=== PATIENT | male | born 1990 ===

== ENCOUNTER → 2021-09-04 | Outpatient (CLI) | payer OTHER ==
[2021-09-04 15:19] LABS: INR 1.1 (<1.2); Partial Thromboplastin Time 26.7 sec (22.0-30.0); Prothrombin Time 11.7 sec (9.0-12.0)
[2021-09-04 15:21] LABS: HCT 48.4 % (39.0-53.0); HGB 15.7 gm/dL (13.0-17.5); MCH 31.2 pg (25.0-35.0); MCHC 32.4 g/dL (31.0-37.0); MCV 96.3 fL (80.0-100.0); Mean Platelet Volume 12.8; RBC 5.02 m/uL (4.30-5.90); RDW 14.3 % (11.5-15.5); WBC 6.7 k/uL (3.8-10.6)
[2021-09-04 15:27] LABS: ALT 22 U/L (4-49); AST 27 U/L (17-59); African American GFR (CKD) >90 (>60 ml/min/1.73 sqM); Albumin 4.2 g/dL (3.5-5.0); Alkaline Phosphatase 81 U/L (38-126); Anion Gap 10 mmol/L; Blood Urea Nitrogen 13 mg/dL (9-20); Calcium 9.6 mg/dL (8.4-10.2); Carbon Dioxide 26 mmol/L (22-30); Chloride 101 mmol/L (98-107); Glucose 79 mg/dL (74-99); Magnesium 1.9 mg/dL (1.6-2.3); Non-African American GFR(CKD) >90 (>60 ml/min/1.73 sqM); Phosphorus 3.7 mg/dL (2.5-4.5); Potassium 4.2 mmol/L (3.5-5.1); Sodium 137 mmol/L (137-145); Total Bilirubin 1.3 mg/dL (0.2-1.3); Total Protein 7.3 g/dL (6.3-8.2)
[2021-09-04 15:56] LABS: Platelet Count 139 k/uL (150-450)
[2021-09-05 02:40] LABS: % Iron Saturation 42.86 (15.00-50.00); Chol/HDL Ratio 2.59 Ratio; Ferritin 85.6 ng/mL (22.0-322.0); Iron 141 ug/dL (65-175); LDL Cholesterol,Calculated 73.9 mg/dL (0.0-131.0); Prealbumin 17.3 mg/dL (18.0-42.0); Total Iron Binding Capacity 329 ug/dL (228-460)
--- NOTE | 2021-09-05 08:54 | CT ---
EXAMINATION TYPE: CT abdomen pelvis w con DATE OF EXAM: 09/04/2021 COMPARISON: None HISTORY: Ventral and left inguinal hernia. CT DLP: 1881.6 mGycm CONTRAST: CT scan of the abdomen and pelvis is performed with Oral Contrast and with IV Contrast, patient injec dre with 100 mL of Isovue M300. FINDINGS: LUNG BASES-: No visible nodule. No infiltrate. LIVER/GB: No calcified gallstones. No space occupying hepatic lesion. Biliary tree is of normal ca liber. PANCREAS: No inflammation. No distinct mass. SPLEEN: No splenic enlargement. No lesion seen. ADRENALS: No nodule. No thickening. KIDNEYS/BLADDER: No hydronephrosis. No nephrolithiasis. No distinct renal mass. Urinary bladder g rossly unremarkable. BOWEL: Normal appendix. Normal bowel caliber. No inflammation. Postoperative change about the stoma ch. GENITAL ORGANS: No gross abnormality. LYMPH NODES: No greater than 1cm abdominal or pelvic lymph nodes are appreciated. AORTA: No significant abnormality. OSSEOUS STRUCTURES: No significant abnormality is seen. OTHER: Fat-containing ventral hernia. Fat-containing inguinal hernias. IMPRESSION: 1. Small fat-containing midline supraumbilical ventral hernia.
[2021-09-08 08:07] LABS: Selenium 90 mcg/L (63-160)
== END | disposition home or self-care (01) ==
LOC: RADCTMAIN 11:31
PROVIDERS: ATTEND Surgery Plastic and Reconstructive Surgery
DX: K43.9 Ventral hernia without obstruction or gangrene (principal)
CPT/HCPCS: 84255; 84134; 84425; 80061; 80053; 82607; 82728; 82525; 82746; 83540; 83550; 83735; 84100; 84443; 84590; 84630; 85027; 85610; 85730; 82306; 83970; 83036; 74177; 36415; Q9967 ×2